=== PATIENT | female | born 2000 | race Caucasian/White ===

== ENCOUNTER 2022-01-12 12:41 | Emergency (ER) | payer OTHER ==
[2022-01-12] MEDS ORDERED: Ondansetron ODT 4 MG TAB ONE (12:53)
[2022-01-12] MEDS ORDERED: Acetaminophen 500 MG TAB ONE (13:03)
== END 2022-01-12 14:03 | disposition home or self-care (01) ==
LOC: NAV ERS 12:41
DX: G44.209 Tension-type headache, unspecified, not intractable (principal); R11.2 Nausea with vomiting, unspecified
CPT/HCPCS: 99283; Q0162

== ENCOUNTER 2022-07-22 10:37 | Emergency (ER) | payer BC, MEDICAID, OTHER ==
[2022-07-22 11:33] LABS: Clarity Clear (Clear); pH, Urine 5.5 (5.0-9.0)
[2022-07-22 11:37] LABS: Leukocyte Negative (Negative); Nitrite Negative (Negative); Protein, Urine (Dipstick) Negative (Neg-Trace)
[2022-07-22 11:38] LABS: Bilirubin Negative (Negative); Blood, Urine Negative (Negative); Glucose, Urine (Dipstick) Negative (Negative); Ketone, Urine Negative (Negative); Urobilinogen 0.2 mg/dL (Less than 2)
[2022-07-22 11:42] LABS: Pregnancy Test - Urine (BHCG) Negative (Negative); Pregu Control Background? CLEAR/WHITE (CLR/WHITE); Pregu Control Bar Appear? YES (CONTROL BAR)
== END 2022-07-22 11:57 | disposition home or self-care (01) ==
LOC: NAV ERS 10:37
DX: R30.0 Dysuria (principal)
CPT/HCPCS: 81003; 81025; 99283